=== PATIENT | male | born 1945 | race Caucasian/White ===

== ENCOUNTER 2017-12-29 12:47 | Inpatient (IN) | payer OTHER ==
[~2017-12-29] VITALS: Ht 180.3 cm; Wt 100.2 kg
--- NOTE | ~2017-12-29 | PROC ---
[facility] [address] [place] [address] PROCEDURE REPORT Name: OSMIN WARE Room: [address] IN .R.#: [id number] Admission: 12/29/17 Attend Phys: Nae Castro Discharge: 01/01/18 Date of : 41 Report #: [id number] THIS REPORT FOR: //name// For GI report, please see the Provation report in Per[employer] 7 content. By: [id number] Records Staff DEBRA /MALIHA
[2017-12-29 12:56] VITALS: BP 125/90
[2017-12-29] MEDS ORDERED: TOPROL XL25 MG PO (12:58)
[2017-12-29] MEDS ORDERED: ZOCOR20 MG PO (12:59)
[2017-12-29] MEDS ORDERED: PRADAXA150 MG PO (12:59)
[2017-12-29 13:25] LABS: ABSOLUTE BASOPHILS 0.1 thou/uL (0.0-0.2); ABSOLUTE EOSINOPHILS 0.1 thou/uL (0.0-0.7); ABSOLUTE LYMPHOCYTES 2.3 thou/uL (0.8-5.3); ABSOLUTE MONOCYTES 0.5 thou/uL (0.0-1.2); ABSOLUTE NEUTROPHILS 2.9 thou/uL (1.6-8.1); BASOPHILS 1.3 %; EOSINOPHILS 2.3 %; HEMATOCRIT 33.3 % (42.0-52.0); HEMOGLOBIN 11.5 gm/dL (14.0-18.0); LYMPHOCYTES 38.1 %; MCH 35.5 pg (26.0-34.0); MCHC 34.7 g/dL (28.0-37.0); MCV 102.4 fL (80.0-100.0); MPV 8.4 fl. (7.2-11.1); NUCLEATED RBCS 0 /100WBC; PLATELET COUNT* 188 thou/uL (150-400); POLYS 49.3 %; RBC 3.25 mil/uL (4.50-6.00)
[2017-12-29 13:29] LABS: ANION GAP 7 mmol/L (7-16); BUN 17 mg/dL (7-18); CALCIUM 8.7 mg/dL (8.5-10.1); CHLORIDE 104 mmol/L (98-107); CO2 27 mmol/L (21-32); CREATININE 1.4 mg/dL (0.6-1.3); GLUCOSE 105 mg/dL (70-99); POTASSIUM 4.2 mmol/L (3.5-5.1); SODIUM 138 mmol/L (136-145)
[2017-12-29 13:36] LABS: ALBUMIN 3.8 g/dL (3.4-5.0); ALKALINE PHOSPHATASE 47 U/L (46-116); LIPASE 344 U/L (73-393); SGOT 38 U/L (15-37); SGPT 37 U/L (30-65); TOTAL BILIRUBIN 0.5 mg/dL (<0.1-1.0); TOTAL PROTEIN 7.1 g/dL (6.4-8.2); TROPONIN-I LEVEL <0.06 ng/mL (<0.06)
--- NOTE | 2017-12-29 15:01 | EKG ---
[place] [address] ELECTROCARDIOGRAM REPORT Name: OSMIN WARE Room: [place] [address] ADM IN [facility]#: [id number] Admission: 12/29/17 Attend Phys: Nae Castro Discharge: Date of : 41 Report #: [id number] THIS REPORT FOR: //name// [facility] ED Test Date: 2017-12-29 Test Time: 13:38:54 Pat Name: OSMIN WARE Department: Room: Gender: Head Mva Reactor Operator: Mc SALAZAR : 1945 Requested By: Lennox Escalona Order Number: [id number] MD: Dennis Blair Measurements Intervals [place] Rate: 91 P: LA: QRS: 1 QRSD: 86 T: 49 QT: 377 QTc: 464 Interpretive Statements Atrial fibrillation Low voltage limb leads No previous ECG available for comparison Electronically Signed On 12-29-2017 15:00:45 CDT by Dennis Blair [email or web address] <ELECTRONICALLY SIGNED> By: Dennis Blair MD, [facility] 12/29/17 1500 1338 1338 Dennis Blair MD, FACC /EPI
[2017-12-29 15:05] VITALS: BP 117/70
--- NOTE | 2017-12-29 15:42 | NUR ---
PT ORIENTED TO ROOM AND UNIT. BED LOW AND LOCKED. SIDE RAILS UPX 3 AND CALL LIGHT IN REACH. WILL CONTINUE TO ASSESS.
[2017-12-29 16:00] VITALS: BP 125/87
[2017-12-29 20:00] VITALS: BP 101/78
[2017-12-29 20:33] LABS: URINE BILIRUBIN NEGATIVE (Negative); URINE BLOOD NEGATIVE (Negative); URINE CLARITY CLEAR; URINE COLOR YELLOW; URINE GLUCOSE-RANDOM NEGATIVE (Negative); URINE KETONES NEGATIVE (Negative); URINE LEUKOCYTES-REFLEX NEGATIVE (Negative); URINE NITRITE-REFLEX NEGATIVE (Negative); URINE PROTEIN NEGATIVE (Negative); URINE SPECIFIC GRAVITY <= 1.005 (1.005-1.030); URINE UROBILINOGEN 0.2 E.U./dl (0.2-1.0)
[2017-12-30] VITALS (7 sets, daily range): BP systolic 106–115; BP diastolic 69–82
[2017-12-30 04:56] LABS: ABSOLUTE BASOPHILS 0.1 thou/uL (0.0-0.2); ABSOLUTE EOSINOPHILS 0.2 thou/uL (0.0-0.7); ABSOLUTE LYMPHOCYTES 2.4 thou/uL (0.8-5.3); ABSOLUTE MONOCYTES 0.7 thou/uL (0.0-1.2); BASOPHILS 1.4 %; EOSINOPHILS 3.6 %; HEMATOCRIT 32.7 % (42.0-52.0); HEMOGLOBIN 11.5 gm/dL (14.0-18.0); LYMPHOCYTES 37.2 %; MCHC 35.2 g/dL (28.0-37.0); MCV 102.2 fL (80.0-100.0); MONOCYTES 10.6 %; MPV 8.3 fl. (7.2-11.1); NUCLEATED RBCS 0 /100WBC; PLATELET COUNT* 174 thou/uL (150-400); POLYS 47.2 %; WBC 6.5 thou/uL (4.0-11.0)
[2017-12-30 05:12] LABS: CALCIUM 8.4 mg/dL (8.5-10.1); CREATININE 1.4 mg/dL (0.6-1.3); POTASSIUM 4.6 mmol/L (3.5-5.1)
--- NOTE | 2017-12-30 05:23 | NUR ---
PT CARE ASSUMED AFTER REPORT. ASSESSMENT COMPLETE. AFIB/AFLUTTER ON MONITOR. UP AD AL WITH STEADY GAIT. NPO SINCE MIDNIGHT FOR GI CONSULT. NO STOOLS OBSERVED OR REPORTED OVERNIGHT. CALL LIGHT IN REACH. BED IN LOWEST POSITION. PROGRSSING TOWARDS GOALS. DENIES PAIN.
[2017-12-30 12:31] LABS: HEMATOCRIT 35.3 % (42.0-52.0); MCH 35.2 pg (26.0-34.0); MCHC 34.1 g/dL (28.0-37.0); MCV 103.1 fL (80.0-100.0); RBC 3.42 mil/uL (4.50-6.00); RDW-CV 12.7 % (10.5-14.5); WBC 6.1 thou/uL (4.0-11.0)
--- NOTE | 2017-12-30 12:34 | NUR ---
Pt is A&O. Resides at home with his . Independent and active. No DME. No hx of HH or SNF. Goal is to return home at ar. NPO for GI testing today. No needs anticipated.
--- NOTE | 2017-12-30 17:34 | NUR ---
ASSESSMENT COMPLETED REFER TO COMPUTER CHARTING. AXLE TURNER TRACKING AFIB. PATIENT RESTING IN BED REPORTING NO PAIN, NAUSEA OR SHORTNESS OF BREATH. BED IN LOW AND LOCKED POSITION. CALL LIGHT WITHIN REACH. IV SALINE LOCKED. ON ROOM AIR. PATIENT DOWN FOR EGD THIS SHIFT. WILL CONTINUE TO MONITOR THIS SHIFT.
[2017-12-31] VITALS: BP 91/61
[2017-12-31 04:00] VITALS: BP 113/80
[2017-12-31 04:25] LABS: ABSOLUTE BASOPHILS 0.1 thou/uL (0.0-0.2); ABSOLUTE EOSINOPHILS 0.2 thou/uL (0.0-0.7); ABSOLUTE LYMPHOCYTES 2.4 thou/uL (0.8-5.3); ABSOLUTE MONOCYTES 0.7 thou/uL (0.0-1.2); BASOPHILS 1.4 %; EOSINOPHILS 2.4 %; HEMATOCRIT 33.1 % (42.0-52.0); HEMOGLOBIN 11.4 gm/dL (14.0-18.0); LYMPHOCYTES 37.6 %; MCH 35.6 pg (26.0-34.0); MCHC 34.5 g/dL (28.0-37.0); MCV 103.3 fL (80.0-100.0); MONOCYTES 10.9 %; MPV 8.5 fl. (7.2-11.1); NUCLEATED RBCS 0 /100WBC; PLATELET COUNT* 180 thou/uL (150-400); POLYS 47.7 %; WBC 6.4 thou/uL (4.0-11.0)
[2017-12-31 04:45] LABS: ALBUMIN 3.1 g/dL (3.4-5.0); CALCIUM 8.4 mg/dL (8.5-10.1); CREATININE 1.3 mg/dL (0.6-1.3); POTASSIUM 3.8 mmol/L (3.5-5.1); TOTAL BILIRUBIN 0.4 mg/dL (<0.1-1.0); TOTAL PROTEIN 6.3 g/dL (6.4-8.2)
--- NOTE | 2017-12-31 05:41 | NUR ---
PT CARE ASSUMED AFTER REPORT. ASSESSMENT COMPLETE. AFIB ON MONITOR. DENIES PAIN. NO STOOLS REPORTED OR OBSERVED OVERNIGHT. UP AD AL WITH STEADY GAIT. CALL LIGHT IN REACH. BED IN LOWEST POSITION. PROGRESSING TOWARDS GOALS.
[2017-12-31 08:00] VITALS: BP 100/62
--- NOTE | 2017-12-31 08:00 | NUR ---
ASSUMED CARE OF PT [id number] AND DOCUMENTED. PT IS ON CARDIAC MONITER TRACING AFIB HR 130. PT IS A&O WITH NO C/O PAIN. VSS WNL. PT IS AFEBRILE AND IS ON ROOM AIR. WM.
[2017-12-31] MEDS ORDERED: PROPAFENONE 15150 MG PO (09:02)
[2017-12-31 12:06] VITALS: BP 87/63
[2017-12-31 16:14] VITALS: BP 118/83
--- NOTE | 2017-12-31 18:38 | NUR ---
CALLED DIETARY X2 FOR GATOR[employer] FOR BOWEL PREP' AND THEY STATED THEY ARE WORKING ON IT. CALLED 3RD X NO ANSW.
[2017-12-31 20:00] VITALS: BP 120/86
[2018-01-01] VITALS: BP 109/80
[2018-01-01 04:00] VITALS: BP 107/75
[2018-01-01 04:49] LABS: HEMATOCRIT 31.5 % (42.0-52.0); HEMOGLOBIN 10.8 gm/dL (14.0-18.0); MCH 35.2 pg (26.0-34.0); MCHC 34.2 g/dL (28.0-37.0); MCV 102.8 fL (80.0-100.0); MPV 8.3 fl. (7.2-11.1); RBC 3.06 mil/uL (4.50-6.00); RDW-CV 12.9 % (10.5-14.5); WBC 6.9 thou/uL (4.0-11.0)
--- NOTE | 2018-01-01 05:45 | NUR ---
PT CARE ASSUMED AFTER REPORT. ASSESSMENT COMPLETE. SR/AFIB ON MONITOR. PT COMPLETED BOWEL PREP BUT STOOLS WERE NOT CLEAR. ENEMA TO BE GIVEN. UP AD AL WITH STEADY GAIT. CALL LIGHT IN REACH. BED IN LOWEST POSITION. PROGRESSING TOWARDS GOALS.
[2018-01-01 06:05] VITALS: BP 107/70
[2018-01-01 06:21] LABS: ALBUMIN 3.3 g/dL (3.4-5.0); CALCIUM 8.3 mg/dL (8.5-10.1); CREATININE 1.2 mg/dL (0.6-1.3); POTASSIUM 3.7 mmol/L (3.5-5.1); TOTAL BILIRUBIN 0.8 mg/dL (<0.1-1.0); TOTAL PROTEIN 6.2 g/dL (6.4-8.2)
[2018-01-01 12:25] VITALS: BP 96/71
[2018-01-01 12:35] VITALS: BP 98/75
[2018-01-01 14:17] VITALS: BP 96/71
--- NOTE | 2018-01-01 14:47 | NUR ---
RECEIVED DISCHARGE ORDERS PER DR RUCKER. GI OK WITH DC TODAY. EDUCATED PT ON F/U APPT WITH HIS PRIMARY, OUTPATIENT CAPSULE ENDOSCOPY STUDY AND LAB WORK FOR CBC IN 1 WEEK. IV DISCONTINUED. CERTIFIED CREDIT COUNSELOR REMOVED AND RETURNED TO NURSE'S DESK. EDUCATED THE PATIENT ON HOME MEDICATIONS. INSTRUCTED HIM TO HOLD PRADAXA FOR 2 WEEKS UNTIL CLEARED BY GI AND CARDIOLOGY. PATIENT VERBALIZED UNDERSTANDING. ALL HIS BELONGINGS ARE PACKED AND LEAVING WITH THE PATIENT. PATIENT DENIES ANY QUESTIONS OR CONCERNS. LEAVING VIA AMBULATORY PER PATIENT REQUEST WITH HIS .
--- NOTE | 2018-01-03 17:39 | CON ---
[address] [address] CONSULTATION Name: JEANIEOSMIN E Room: [address] IN M.R.#: [id number] Admission: 12/29/17 Attend Phys: Nae Castro Discharge: 01/01/18 Date of : 41 Report #: [id number] THIS REPORT FOR: //name// CC: Tj Allen DICTATED BY: May Shrestha [facility] DATE OF SERVICE: 12/30/2017 Please note at the time of this dictation, the patient was seen and physically examined by myself. REASON FOR CONSULTATION: Melenic stools x 1 week. HISTORY OF PRESENT ILLNESS: This is a 72-year-old man who awakened on Thursday morning, had a bowel movement and noticed that his stool was very dark where it had been previously brown the day before. The patient is on Pradaxa for his atrial fib. 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 He did so on Thursday and underwent a CAT scan, which was essentially negative showing just some diffuse hepatic steatosis and gallstones and hiatal hernia. Hemoglobin at that time was 11.5. He states since he stopped his Pradaxa on Thursday, he has had diminishing blood. It appears in his stools, they have become case managers and they are not as dark. He does mention that he has been having issues for at least a year of acid reflux that is worsening in which he has been taking Tums regularly as well as an [id number] acid cruise guide on a regular basis. He denies any nausea, vomiting, abdominal pain, fever or chills. He does not take any NSAIDs because of the Pradaxa. He does not drink any alcohol either. Last colon was in [place], [place] approximately 15 years ago and he states everything was essentially normal. ALLERGIES: No known drug allergies. MEDICATIONS: From home include Pradaxa, Zocor and Toprol. PAST MEDICAL HISTORY: Atrial fibrillation and hypertension. PAST SURGICAL HISTORY: Hernia repair. FAMILY HISTORY: Negative for any GI or female cancers. SOCIAL HISTORY: Denies any alcohol, tobacco [place] [address] CONSULTATION Name: OSMIN WARE Room: [address]#: [id number] Admission: 12/29/17 Attend Phys: Nae Castro Discharge: 01/01/18 Date of : 41 Report #: [id number] REVIEW OF SYSTEMS: Twelve-point review of systems is essentially negative except what is mentioned in the HPI. PHYSICAL EXAMINATION: VITAL SIGNS: Temperature 36.6, pulse 78, respirations 18, blood pressure 109/71. HEART: Regular rate and rhythm. LUNGS: Clear. ABDOMEN: Soft, positive bowel sounds in all 4 quadrants with no masses or tenderness noted. LABORATORY DATA: Hemoglobin 11.5, hematocrit 32.7, white count is 6.5, platelets 174. Sodium 141, potassium 4.61, chloride 107, CO2 27, BUN is 14, creatinine is 1.4, GFR is 50 and glucose is 103. IMPRESSION: 1. Melenic stool. 2. Gastroesophageal reflux disease, worsening for the last year. 3. Anemia. 4. Anticoagulant therapy Pradaxa secondary to atrial fibrillation. PLAN: 1. EGD today with Dr. Grullon. 2. Further recommendations to be made after the procedure has been performed. 3. The patient will need an outpatient colon since it has been greater than 10 years unless his EGD is negative and he will get workup while he is still in the hospital. Thank you for allowing us to participate in this patient's care. Please do not hesitate to call with any questions in regard to this consult. ADDENDUM REFERRING PHYSICIAN: Roland Allen, DO I have seen and examined the patient and agree with plans as has been outlined by nurse practitioner, May Shrestha. Because of the patient's history of melena with associated anemia, we will proceed with upper endoscopy today. He has no major issues referable to his upper or lower GI tract, but we need to investigate for source of his melena. He does have problem with chronic acid reflux, which appears to be worsening. He is not taking nonsteroidals. Denies any lower GI tract complaints, nor any family history of the same. We will proceed with upper endoscopy today and depending on the results of the same, [place] [address] CONSULTATION Name: OSMIN WARE Room: [address] IN [place]#: [id number] Admission: 12/29/17 Attend Phys: Nae Castro Discharge: 01/01/18 Date of : 41 Report #: [id number] may need to have a colonoscopy in the next 1-2 days before resuming his Pradaxa. I discussed plans with the patient as well and he is agreeable with the same. <ELECTRONICALLY SIGNED> By: Jp Grullon DO 01/03/18 1739 1221 [id number] Grullon DO /nt
== END 2018-01-01 12:45 | disposition home or self-care (01) | DRG 813 ==
LOC: M.ERS 12:47 → M.TBA-ER 14:08 → M.2W 14:08
PROVIDERS: Family Medicine; Internal Medicine; Internal Medicine Gastroenterology; Nurse Practitioner Adult Health; ADMIT Internal Medicine
PROC: 0DJ08ZZ Inspection of Upper Intestinal Tract, Via Natural or Artificial Opening Endoscopic (ICD-10-PCS; principal; 2017-12-30)
PROC: 0DJD8ZZ Inspection of Lower Intestinal Tract, Via Natural or Artificial Opening Endoscopic (ICD-10-PCS; 2018-01-01)
DX: D68.32 Hemorrhagic disorder due to extrinsic circulating anticoagulants (principal); K92.2 Gastrointestinal hemorrhage, unspecified; I48.91 Unspecified atrial fibrillation; I10 Essential (primary) hypertension; D64.9 Anemia, unspecified; N18.3 Chronic kidney disease, stage 3 (moderate); K21.9 Gastro-esophageal reflux disease without esophagitis; K22.2 Esophageal obstruction; K44.9 Diaphragmatic hernia without obstruction or gangrene; K64.8 Other hemorrhoids; Z79.01 Long term (current) use of anticoagulants; Z79.899 Other long term (current) drug therapy

== ENCOUNTER → 2017-12-29 | Outpatient (CLI) | payer OTHER ==
[~2017-12-29] MED LIST: PRADAXA150 MG PO; PROPAFENONE 15150 MG PO; TOPROL XL25 MG PO; ZOCOR20 MG PO
[2017-12-29 11:13] LABS: ABSOLUTE BASOPHILS 0.1 thou/uL (0.0-0.2); ABSOLUTE EOSINOPHILS 0.1 thou/uL (0.0-0.7); ABSOLUTE LYMPHOCYTES 2.3 thou/uL (0.8-5.3); ABSOLUTE MONOCYTES 0.6 thou/uL (0.0-1.2); ABSOLUTE NEUTROPHILS 2.8 thou/uL (1.6-8.1); BASOPHILS 1.5 %; EOSINOPHILS 1.9 %; HEMATOCRIT 32.8 % (42.0-52.0); HEMOGLOBIN 11.2 gm/dL (14.0-18.0); LYMPHOCYTES 39.6 %; MCH 35.1 pg (26.0-34.0); MCHC 34.1 g/dL (28.0-37.0); MCV 103.1 fL (80.0-100.0); MONOCYTES 10.2 %; NUCLEATED RBCS 0 /100WBC; PLATELET COUNT* 182 thou/uL (150-400); POLYS 46.8 %; RBC 3.18 mil/uL (4.50-6.00); WBC 5.9 thou/uL (4.0-11.0)
== END ==
LOC: M.LAB 10:42
PROVIDERS: Internal Medicine Cardiovascular Disease
DX: K92.1 Melena (principal); I10 Essential (primary) hypertension; I48.91 Unspecified atrial fibrillation